=== PATIENT | male | born 1995 | race American Indian/Alaskan Native ===

== ENCOUNTER 2021-04-07 07:35 | Emergency (ER) | payer OTHER ==
[2021-04-07] MEDS ORDERED: KETOROLAC 10 MG TAB PO ONE (07:49)
[2021-04-07] MEDS ORDERED: ACETAMINOPHEN 325 MG TAB PO ONE ×2 (07:49→07:56)
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
[2021-04-07] MEDS ORDERED: IBUPROFEN 600 MG TAB PO ONE (07:56)
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
[2021-04-07 09:09] VITALS: BP 118/72
== END 2021-04-07 09:11 | disposition home or self-care (01) ==
LOC: ED 07:35
DX: S29.012A Strain of muscle and tendon of back wall of thorax, initial encounter (principal); V49.49XA Driver injured in collision with other motor vehicles in traffic accident, initial encounter; Y93.89 Activity, other specified; Y92.89 Other specified places as the place of occurrence of the external cause; Y99.8 Other external cause status
CPT/HCPCS: 72072; 99283